=== PATIENT | male | born 1960 | race Caucasian/White ===

== ENCOUNTER 2025-06-07 14:01 | Emergency (ER) | payer MEDICARE, MEDICAID ==
[~2025-06-07] VITALS: Ht 170.2 cm; Wt 77.4 kg
[2025-06-07 14:18] VITALS: O2SAT 98
[2025-06-07] MEDS ORDERED: TOPUD MT (20:31)
[2025-06-07] MEDS ORDERED: BENZ100C86 MT (20:31)
[2025-06-07] MEDS ORDERED: OMEP20CA14 MT (20:33)
[2025-06-07] MEDS: ACETAMINOPHEN 500MG TABLET PO ONE (20:33)
[2025-06-07 20:34] LABS: INFLUENZA TYPE A Presumptive Negative (Pres. Neg.)
[2025-06-07 20:35] LABS: INFLUENZA TYPE B Presumptive Negative (Pres. Neg.)
[2025-06-07 20:36] LABS: RESPIRATORY SYNCYTIAL VIRUS Not Detected (Not Detectd)
[2025-06-07 20:41] VITALS: BP 153/85; PULSE 97; RESP 18; TEMP 36.7; O2SAT 99
== END 2025-06-07 20:45 | disposition home or self-care (01) ==
LOC: ER 14:01
DX: U07.1 COVID-19 (principal); J06.9 Acute upper respiratory infection, unspecified; Z79.899 Other long term (current) drug therapy; Z98.890 Other specified postprocedural states
CPT/HCPCS: 71045; 87420; 87426; 87804; 93005; 99285